=== PATIENT | male | born 1975 | race Caucasian/White ===

== ENCOUNTER 2016-09-05 11:02 | Emergency (ER) | payer SELFPAY ==
[~2016-09-05] VITALS: Ht 185.4 cm; Wt 115.0 kg
[~2016-09-05 11:02] MED LIST: HYDR-3533 PO; INDO75CA3 PO; MECL25CH PO; ZOFR4TAB3 SL
[2016-09-05 11:08] VITALS: BP 118/70; PULSE 72; RESP 22; TEMP 98.3; O2SAT 95
[2016-09-05] MEDS ORDERED: ACETAMINOPHEN/HYDROcodone 325 MG/5 MG TAB PO ONE (11:30)
[2016-09-05] MEDS ORDERED: KETOROLAC TROMETHAMINE 60 MG/2 ML (IM) VIAL IM ONE (11:30)
[2016-09-05] MEDS ORDERED: DEXAMETHASONE SOD PHOS 20 MG/5 ML VIAL IM ONE (11:30)
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
[2016-09-05] MEDS ORDERED: ORPH100T99 PO (11:38)
[2016-09-05] MEDS ORDERED: PRED20 PO (11:38)
[2016-09-05] MEDS ORDERED: TRAM50TA PO (11:38)
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
== END 2016-09-05 13:39 | disposition home or self-care (01) ==
LOC: NEPB 11:02
DX: M54.32 Sciatica, left side (principal); M53.86 Other specified dorsopathies, lumbar region; Z87.828 Personal history of other (healed) physical injury and trauma
CPT/HCPCS: 72110; 96372; 99283; J1100; J1885

== ENCOUNTER 2017-09-11 16:29 | Emergency (ER) | payer MEDICAID ==
[~2017-09-11] VITALS: Ht 185.4 cm; Wt 129.5 kg
[~2017-09-11 16:29] MED LIST changes: -HYDR-3533 PO; -INDO75CA3 PO; -MECL25CH PO; +ORPH100T2 PO; +PRED20 PO; +TRAM50TA PO; -ZOFR4TAB3 SL
[2017-09-11 16:32] VITALS: BP 135/89; PULSE 81; RESP 16; TEMP 97.8; O2SAT 98
[2017-09-11] MEDS ORDERED: HYDR-3288 PO (20:39)
[2017-09-11] MEDS ORDERED: PRED20 PO (20:39)
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
[2017-09-11] MEDS ORDERED: ACETAMINOPHEN/HYDROcodone 325 MG/5 MG TAB PO ONE (20:45)
== END 2017-09-11 20:54 | disposition home or self-care (01) ==
LOC: NEPD 16:29
DX: M79.671 Pain in right foot (principal); M25.562 Pain in left knee; Z88.0 Allergy status to penicillin
CPT/HCPCS: 99283

== ENCOUNTER 2017-12-22 10:53 | Emergency (ER) | payer MEDICAID ==
[~2017-12-22] VITALS: Ht 185.4 cm; Wt 150.0 kg
[~2017-12-22 10:53] MED LIST changes: +HYDR-3288 PO
[2017-12-22 10:59] VITALS: BP 134/78; PULSE 84; RESP 16; TEMP 98.5; O2SAT 96
[2017-12-22] MEDS ORDERED: ORPH100T2 PO (11:09)
[2017-12-22] MEDS ORDERED: TRAM50TA PO (11:09)
[2017-12-22] MEDS ORDERED: PRED20 PO (11:09)
[2017-12-22] MEDS ORDERED: MUPI2%T TOPICAL (11:10)
[2017-12-22] MEDS ORDERED: BACT800T5 PO (11:10)
[2017-12-22] MEDS ORDERED: KETOROLAC TROMETHAMINE 60 MG/2 ML (IM) VIAL IM ONE (11:15)
[2017-12-22] MEDS ORDERED: DEXAMETHASONE SOD PHOS 20 MG/5 ML VIAL IM ONE (11:15)
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
== END 2017-12-22 11:55 | disposition home or self-care (01) ==
LOC: NEPK 10:53
DX: M54.40 Lumbago with sciatica, unspecified side (principal); L73.9 Follicular disorder, unspecified; B95.62 Methicillin resistant Staphylococcus aureus infection as the cause of diseases classified elsewhere
CPT/HCPCS: 96372; 99283; J1100; J1885

== ENCOUNTER 2018-01-19 09:12 | Observation (INO) | payer MEDICAID ==
[~2018-01-19] VITALS: Ht 185.4 cm; Wt 140.0 kg
[~2018-01-19 09:12] MED LIST changes: +BACT800T5 PO; +MUPI2%T TOPICAL
[2018-01-19 09:15] VITALS: BP 133/84; PULSE 71; RESP 20; TEMP 97.8; O2SAT 99
[2018-01-19] MEDS ORDERED: NITROGLYCERIN 0.4 MG SL 25 TABS/BTL SL ONE (09:30)
[2018-01-19] MEDS ORDERED: ASPIRIN 325 MG TAB PO ONE (09:30)
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
[2018-01-19 09:59] LABS: AUTOMATED NEUTROPHIL # 3.9 TH/MM3 (1.8-7.7); BASOPHIL # 0.1 TH/MM3 (0-0.2); BASOPHIL % 1.1 % (0.0-2.0); EOSINOPHIL # 0.1 TH/MM3 (0-0.4); EOSINOPHIL % 1.5 % (0.0-4.0); HEMOGLOBIN 16.2 GM/DL (13.0-17.0); LYMPH % 26.3 % (9.0-44.0); LYMPHOCYTE # 1.7 TH/MM3 (1.0-4.8); MEAN CELL VOLUME 83.5 FL (80.0-100.0); MEAN CORPUSCULAR HEMOGLOBIN 28.8 PG (27.0-34.0); MEAN CORPUSCULAR HGB CONC 34.4 % (32.0-36.0); MONO % 10.5 % (0.0-8.0); MONOCYTE # 0.7 TH/MM3 (0-0.9); NEUT % 60.6 % (16.0-70.0); PLATELET COUNT 208 TH/MM3 (150-450); RED BLOOD COUNT 5.63 MIL/MM3 (4.50-5.90); RED CELL DISTRIBUTION WIDTH 13.4 % (11.6-17.2); WHITE BLOOD COUNT 6.5 TH/MM3 (4.0-11.0)
--- NOTE | 2018-01-19 10:09 | RADRPT ---
EXAM DATE: 01/19/2018 9:55 AM EDT AGE/SEX: 42 years / Male INDICATIONS: Chest pain. CLINICAL DATA: This is the patient's initial encounter. Patient reports that signs and symptoms have been present for 3 weeks and indicates a pain score of 6/10. MEDICAL/SURGICAL HISTORY: None. None. COMPARISON: No prior exams available for comparison. FINDINGS: A single AP view of the chest demonstrates the lungs to be symmetrically aerated without evidence of mass, infiltrate or effusion. The cardiomediastinal contours are unremarkable. Osseous structures a re intact. CONCLUSION: Negative for an acute process. Electronically signed by: Mal Brandon MD 01/19/2018 10:08 AM EDT
[2018-01-19 10:13] LABS: ALBUMIN 4.1 GM/DL (3.4-5.0); AST (GOT) 25 U/L (15-37); BICARBONATE 23.8 MEQ/L (21.0-32.0); BLOOD UREA NITROGEN 10 MG/DL (7-18); CALCIUM 9.3 MG/DL (8.5-10.1); CHLORIDE 106 MEQ/L (98-107); CREATININE 1.12 MG/DL (0.60-1.30); GLOMERULAR FILTRATION RATE 72 ML/MIN (>89); GLUCOSE,RANDOM 93 MG/DL (74-106); MAGNESIUM 2.2 MG/DL (1.5-2.5); SODIUM (NA) 140 MEQ/L (136-145)
[2018-01-19 10:15] LABS: ALT (GPT) 50 U/L (12-78)
[2018-01-19 10:16] VITALS: BP 131/95; PULSE 73; RESP 18; O2SAT 95
[2018-01-19 10:19] LABS: ALKALINE PHOSPHATASE 83 U/L (45-117); TOTAL BILIRUBIN ADULT 0.6 MG/DL (0.2-1.0); TOTAL PROTEIN 7.7 GM/DL (6.4-8.2); TROPONIN I LESS THAN 0.02 NG/ML (0.02-0.05)
[2018-01-19 10:22] LABS: PROTHROMBIN TIME - PATIENT 10.3 SEC (9.8-11.6)
[2018-01-19 10:24] LABS: D-DIMER 0.41 MG/L FEU (0.00-0.50)
[2018-01-19 11:00] VITALS: BP 114/77; PULSE 68; RESP 18; O2SAT 95
[2018-01-19] MEDS ORDERED: SODIUM CHLORIDE 0.9% FLUSH 10 ML FLUSH IV FLUSH PRN (12:45)
[2018-01-19] MEDS ORDERED: ONDANSETRON ODT 4 MG TAB PO PRN (12:45)
[2018-01-19] MEDS ORDERED: NITROGLYCERIN 0.4 MG SL 25 TABS/BTL SL PRN (12:45)
[2018-01-19] MEDS ORDERED: ACETAMINOPHEN 500 MG CPLT PO PRN (12:45)
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
[2018-01-19 13:58] VITALS: BP 122/80; PULSE 67; RESP 16; TEMP 98.1; O2SAT 95
[2018-01-19 14:00] LABS: TROPONIN I LESS THAN 0.02 NG/ML (0.02-0.05)
[2018-01-19] MEDS ORDERED: REGADENOSON INJ 0.4 MG/5 ML SYR ONE (16:21)
[2018-01-19 16:34] LABS: TROPONIN I LESS THAN 0.02 NG/ML (0.02-0.05)
[2018-01-19 17:54] VITALS: BP 114/70; PULSE 72; RESP 16; TEMP 98; O2SAT 95
[2018-01-19] MEDS ORDERED: SODIUM CHLORIDE 0.9% FLUSH 10 ML FLUSH IV FLUSH SCH (21:00)
[2018-01-19 22:00] VITALS: BP 111/74; PULSE 60; RESP 16; TEMP 97.8; O2SAT 97
[2018-01-20 02:15] VITALS: BP 111/63; PULSE 72; RESP 16; TEMP 98; O2SAT 96
[2018-01-20 04:54] VITALS: BP 132/78; PULSE 78; RESP 18; TEMP 98.6; O2SAT 99
[2018-01-20] MEDS ORDERED: ASPIRIN 325 MG TAB PO SCH (09:00)
--- NOTE | 2018-01-20 09:16 | RADRPT ---
EXAM DATE: 01/20/2018 9:11 AM EDT AGE/SEX: 42 years / Male INDICATIONS:Angina. Unable to walk on treadmill Left sided chest pain for three weeks. CLINICAL DATA: This is the patient's initial encounter. Patient reports that signs and symptoms have been present for 3 weeks and indicates a pain score of 4/10. MEDICAL/SURGICAL HISTORY: Non-responsive. Non-responsive. COMPARISON: No prior exams available for comparison. No external comparison. DOSE: 30.3 mCi Tc 99m Myoview at stress 30.1 mCi [id number] at rest 0.4 mg Lexiscan STRESS SYMPTOMS: Dyspnea. EJECTION FRACTION: 67 % TECHNIQUE: The patient underwent pharmacologic stress with infusion of prescribed dose. Continuous ECG tracing was monitored during stress. Gated SPECT imaging was performed after stress and conventi onal SPECT imaging was performed at rest. The examination was performed on a SPECT/CT scanner, both attenuation and non-corrected datasets were reviewed. FINDINGS: Distribution: The maximum perfused segment at stress is in the lateral wall. Perfusion Study: The pattern of perfusion at stress is within normal limits. Gated Study: There are intact wall motion and wall thickening without hypokinetic or dyskinetic segm ents. The ejection fraction is calculated at 67%. RISK CATEGORY: Low (<1% Annual Motality Rate) CONCLUSION: 1. No evidence for significant ischemia. 2. Intact wall motion with EF of 67%. Electronically signed by: Gibson Burton MD 01/20/2018 9:15 AM EDT
[2018-01-20 09:42] VITALS: O2SAT 92
--- NOTE | 2018-01-20 10:12 | HHI.DCPOC ---
Discharge Care Plan Diagnosis: (1) Musculoskeletal chest pain Goals to Promote Your Health * To prevent worsening of your condition and complications * To maintain your health at the optimal level Directions to Meet Your Goals Take your medications as prescribed Follow your dietary instruction Follow activity as directed Keep your appointments as scheduled Take your immunizations and boosters as scheduled If your symptoms worsen call your PCP, if no PCP go to Urgent Care Center or Emergency Room Smoking is Dangerous to Your Health. Avoid second hand smoke Call the 24-hour hour crisis hotline for domestic abuse at Juanita Santiago Jan 20, 2018 10:12
--- NOTE | 2018-01-20 10:19 | HHI.DS ---
Discharge Summary Admission Date Jan 19, 2018 at 11:53 Discharge Date: Jan 20, 2018 Admitting Diagnosis chest pain (1) Musculoskeletal chest pain Diagnosis: Principal ICD Codes: R07.89 - Other chest pain Status: Chronic Brief History 42-year-old male presents the ER for further evaluation as directed by his PCP for chest pain 3 weeks. ACS rule out 3 sets of EKGs and cardiac enzymes. Admitted chest pain center. Seen and evaluated by qa reviewer, Dr. Vega Martines. Completed myocardial perfusion study was unremarkable and did not indicate areas of ischemia. Discomfort felt to be musculoskeletal due to prolonged duration, easily reproduced with palpation, and made worse with certain movements of left arm. Discharge home follow-up with PCP. CBC/BMP: 01/19/18 0940 01/19/18 0940 Significant Findings Laboratory Tests Test 01/19/18 09:40 01/19/18 13:10 01/19/18 15:50 Monocytes (%) (Auto) 10.5 % (0.0-8.0) Estimat Glomerular Filtration Rate 72 ML/MIN (>89) Troponin I LESS THAN 0.02 NG/ML LESS THAN 0.02 NG/ML LESS THAN 0.02 NG/ML PE at Discharge GENERAL: Alert WN, WD, NAD, pleasant, , obese male HEAD: NC, AT CV: RRR, without murmur, rub, gallop, no JVD, S1-S2 no S3-S4. RESP: Clear lungs throughout bilateral, no crackles, wheeze, rhonchi, symmetrical chest rise, nonlabored, able to speak in full sentences EXT: Pulses +2x4, trace bilateral lower extremity dependent edema MS: Normal tone x4 extremities, full range of motion PSYCH: A+O x3, pleasant affect, appropriate speech, mood, insight and judgment SKIN: Normal turgor, normal texture Pt Condition on Discharge: Good Discharge Disposition: Discharge Home Discharge Instructions DIET: Follow Instructions for: Heart Healthy Diet Activities you can perform: Regular-No Restrictions Juanita Santiago Jan 20, 2018 10:19
[2018-01-20 12:00] VITALS: BP 116/93; PULSE 82; RESP 17; TEMP 97.5; O2SAT 95
--- NOTE | 2018-01-20 16:40 | EKG ---
Date Performed: 01/19/2018 Time Performed: 15:53:39 PTAGE: 42 years EKG: ECTOPIC ATRIAL BRADYCARDIA LOW QRS VOLTAGE IN PRECORDIAL LEADS ABNORMAL RHYTHM ECG PREVIOUS TRACING : 01/19/2018 13.07 Since previous tracing, ectopic atrial pacer is new DOCTOR: Vega Martines Interpretating Date/Time 01/20/2018 16:39:41
--- NOTE | 2018-01-20 16:40 | EKG ---
Date Performed: 01/19/2018 Time Performed: 13:07:12 PTAGE: 42 years EKG: Sinus rhythm NORMAL ECG PREVIOUS TRACING : 01/19/2018 09.25 Since previous tracing, no significant change noted DOCTOR: Vega Martines Interpretating Date/Time 01/20/2018 16:39:55
--- NOTE | 2018-01-20 16:40 | EKG ---
Date Performed: 01/19/2018 Time Performed: 09:25:45 PTAGE: 42 years EKG: Sinus rhythm NONSPECIFIC T-WAVE ABNORMALITY BORDERLINE ECG PREVIOUS TRACING : 08/03/2014 13.36 Since previous tracing, no significant change noted DOCTOR: Vega Martines Interpretating Date/Time 01/20/2018 16:40:06
--- NOTE | 2018-01-20 16:45 | TR ---
Date Performed: 01/19/2018 Time Performed: 16:20:09 DOCTOR: Vega Martines DRUG LIST: CLINICAL HISTORY: ANGINA REASON FOR TEST: Angina REASON FOR ENDING: OBSERVATION: CONCLUSION: COMMENTS: Lexiscan stress test was performed under standard four minute protocol. Radionuclide was injected one minute prior to ending the test. No electrocardiographic abormalities were present t o suggest ischemia. Nuclear imaging and interpretation are pending.
== END 2018-01-20 15:53 | disposition home or self-care (01) ==
LOC: NEPE 09:12 → NEDA 11:53 → NEPHCDU 12:57
PROVIDERS: ADMIT Internal Medicine Cardiovascular Disease; ATTEND Internal Medicine Cardiovascular Disease
DX: R07.89 Other chest pain (principal); R94.31 Abnormal electrocardiogram [ECG] [EKG]; M54.9 Dorsalgia, unspecified; G89.29 Other chronic pain; F12.90 Cannabis use, unspecified, uncomplicated
CPT/HCPCS: 71045; 78452; 80053; 82550; 83735; 83880; 84484; 85025; 85379; 85610; 85730; 93005; 93017; 99285; A9502; G0378; J2785